=== PATIENT | female | born 1970 | race Caucasian/White ===

== ENCOUNTER → 2018-02-02 15:30 | Outpatient (CLI) | payer SELFPAY ==
[2018-02-06 10:39] LABS: HPV Reflexed? NOT INDICATED
== END ==
PROVIDERS: Visit Provider Obstetrics & Gynecology
DX: Z12.4 Encounter for screening for malignant neoplasm of cervix (principal)
CPT/HCPCS: 88175; G0145

== ENCOUNTER 2021-02-25 05:33 | Day surgery (SDC) | payer OTHER, SELFPAY ==
[2020-10-09 11:38] VITALS: BMI 37.1
[2021-01-22 09:56] VITALS: BMI 37.1
--- NOTE | 2021-02-17 11:04 | NURSING ---
During PAT phone interview, pt instructed to notify Dr Gerard's office that she currently has a cold and is seeing PCP.
--- NOTE | 2021-02-19 10:38 | EKG12_ITS ---
Test Reason : PRE-OP Blood Pressure : / mmHG Vent. Rate : 081 BPM Atrial Rate : 081 BPM P-R Int : 124 ms QRS Dur : 098 ms QT Int : 372 ms P-R-T Axes : 000 -07 012 degrees QTc Int : 432 ms Normal sinus rhythm Voltage criteria for left ventricular hypertrophy Inferior infarct , age undetermined , cannot be excluded Abnormal ECG Confirmed by NASH MERINO, JESÚS ([id number]), dictionary editor GIGI OVALLE ([id number]) on 02/20/2021 7:52:52 AM Referred By: José Gerard Confirmed By:JESÚS CAO MD
[2021-02-19 11:29] LABS: Hematocrit 41.5 % (37-47); Hemoglobin 14.2 g/dL (12.0-15.0); Mean Corp Hgb Conc 34.2 g/dL (32-36); Mean Corpuscular Hgb 29.6 pg (27.0-32.0); Mean Corpuscular Volume 86.6 fL (81-99); Mean Platelet Vol. 9.1 fl (6.2-12.0); Platelet Count 319 K/mm3 (150-450); RBC Distribution Width CV 12.2 % (11.6-14.6); RBC Distribution Width SD 38.9 fl (35.1-43.9); Red Blood Count 4.79 M/mm3 (4.2-5.4); White Blood Count 6.1 K/mm3 (4.4-11.0)
[2021-02-19 11:38] LABS: Prothrombin Time (Protime)PT. 12.5 SECONDS (11.7-14.9)
[2021-02-19 11:40] LABS: Partial Thromboplast Time 32.6 Seconds (24.1-36.2)
[2021-02-19 11:57] LABS: AST(SGOT) 21 U/L (15-37); Alanine Aminotransfer ALT/SGPT 28 U/L (13-56); Albumin, Serum 3.7 g/dL (3.2-5.0); Alkaline Phosphatase 66 U/L (45-117); Anion Gap 5 (5-15); BUN 16 mg/dL (7-18); BUN/Creat Ratio 13.6 RATIO (10-20); Bilirubin, Direct 0.11 mg/dL (0.00-0.30); Calcium,Total 9.5 mg/dL (8.5-10.1); Chloride 106 mmol/L (98-107); Creatinine, Serum 1.18 mg/dL (0.55-1.02); EST Glomerular Filtration Rate 51 mL/min (>60); Est Glom Filt Rate - Afr Amer 62 mL/min (>60); Globulin 3.8 g/dL (2.2-4.2); Glucose 155 mg/dL (74-106); Potassium 3.5 mmol/L (3.5-5.1); Protein, Total 7.5 g/dL (6.4-8.2); Sodium Level 139 mmol/L (136-145)
--- NOTE | 2021-02-24 12:33 | HP.PCM_ITS ---
History and Physical Date of Admission: 02/25/21 HISTORY OF PRESENT ILLNESS 50 year old female presents with complaints of bilateral macromastia as well as associated painful symptomatology of neck pain, thoracic back pain, bilateral shoulder pain from shoulder grooving from the weight of her breast on her bra straps, an inframammary intertrigo for which she uses powders for relief. She denies any trauma to her breasts. Denies any nipple discharge. She has seen a Chiropractor in the past without much back pain relief. She had a mammogram on 10/16/20. It showed no dominant mass or focal asymmetry identified. No suspicious microcalcifications or foci of architectural distortion seen. No mammographic evidence of malignancy. She denies any family history of breast cancer. We have received medical approval from her insurance carrier for the breast reduction surgery. It is scheduled for 02/25/21. She presents at this time for a preop visit to answer any last minute questions and to sign the consent. PAST MEDICAL HISTORY Arthritis Chronic neck pain Chronic thoracic back pain Fatty liver High blood pressure Intertrigo Macromastia PMDD (premenstrual dysphoric disorder) Shoulder pain PAST SURGICAL HISTORY eye surgery kidney surgery tonsillectomy ALLERGIES meloxicam house dust mold MEDICATIONS bupropion HCl fluoxetine metformin montelukast triamterene-hydrochlorothiazide diazepam FAMILY HISTORY Mother - Arthritis, Diabetes, Skin cancer Father - Cancer, Hypertension, Lung cancer, Skin cancer Grandfather - Cancer Daughter - Cancer Brother - Diabetes SOCIAL HISTORY Smoking Status: Never smoker alcohol intake: current details: socially substance use type: does not use REVIEW OF SYSTEMS General - Denies fever, weight loss, and fatigue. Eyes - Denies cataracts and glaucoma. Had right eye surgery as a child. ENT - Denies nasal congestion and sore throat. Has seasonal allergies and tonsillectomy 1987. Endocrine - Denies excessive thirst and urination. History of Pre-menstrual dysphoric disorder. Skin - Denies suspicious lesions and skin cancer. Has inframammary intertrigo for which she uses powders for relief. Musculoskeletal - Denies weakness of muscles and joints, and arthritis. Has right knee joint pain and stiffness and neck pain and back pain. Her neck and back pain involve cervical and thoracic area. Has a history of carpal tunnel syndrome. Has bilateral shoulder pain from shoulder grooving from the weight of her breasts on her bra straps. Neuro - History of headaches. Cardiovascular - Denies chest pain, fatigue, and shortness of breath with exertion. Has HTN. Psych - Denies anxiety and depression. Respiratory - Denies chronic cough and shortness of breath. Patient is a former smoker. Gastrointestinal - Denies nausea, vomiting, diarrhea, and constipation. History of fatty liver. Hematologic - Denies abnormal bruising and bleeding. Genitourinary - Denies hematuria and urinary frequency. PHYSICAL EXAMINATION General - Alert and oriented. Her bra size is 46 H. HEENT - PERRL. EOMI. Throat is clear. Neck - Supple. No cervical adenopathy. No bony tenderness. There is some pericervical soft tissue tenderness. Lungs- Clear to auscultation. Heart - Regular rate and rhythm. Breasts - Patient has bilateral macromastia. No breast masses palpable. No axillary adenopathy noted. Distance from midclavicular line on the left to nipple is 43 cm and from the nipple to the inframammary fold is 13 cm. Distance from midclavicular line on the right to the nipple is 44 cm and from the nipple to the inframammary fold is 14 cm. Nipple areolar complex diameter is 7.5 cm bilaterally. No active inframammary intertrigo noted at this time. Abdomen - Soft and non distended. Back - No bony tenderness noted. There is perivertebral soft tissue tenderness in the upper thoracic area. Extremities - FROM. No axillary adenopathy. Radial pulses are palpable. There is some bilateral shoulder tenderness with shoulder grooving from the weight of her breasts on her bra straps. Neuro - CN II-XII grossly intact. Psych - Normal mood and affect. ASSESSMENT 1. Bilateral macromastia. 2. Neck pain. 3. Thoracic back pain. 4. Bilateral shoulder pain from shoulder grooving from the weight of the breasts on her bra straps. 5. Inframammary intertrigo. PLAN Discussed with the patient the procedure of breast reduction mammoplasty. I feel this procedure would be beneficial in this patient as it would help relieve her painful symptomatology. She had a mammogram on 10/16/20. It showed no dominant mass or focal asymmetry identified. No suspicious microcalcifications or foci of architectural d istortion seen. No mammographic evidence of malignancy. I would remove approximately 700 grams of breast tissue per side. We will send the tissue to pathology for analysis to rule out carcinoma. Discussed with patient the extent of scarring for this procedure. The biggest risk for wound healing problems is the T-zone area. Usually wound care and sometimes antibiotics are necessary for healing in this area. She would have drains in for a few day depending on the amount of tissue that is removed. She will be on antibiotics until the drains are removed. In general, the final breast size will be in the full C to maybe low D range. Patient voices understanding. Surgery will be done under general anesthesia with a surgical observation overnight stay in the hospital. She will have drains in for a few days and be maintained on antibiotics until the drains are removed. She will be on a lifting restriction for 6 weeks and wear a surgical compression bra for 6 weeks. Patient was informed of the risks and complication of the procedure including alternatives to surgery. These were discussed with her personally. She voices understanding and wishes to proceed. Some of the risks and complications were included in a form from the [employer] [employer]. Potential risks and complications included but not inclusive of bleeding, infection, seroma, hematoma, bruising, swelling, prolonged need for drains, loss of sensation to skin, partial or complete loss of skin flap and/or nipple graft, wound breakdown, need for wound care, poor scarring, poor aesthetic outcome, intra operative cardiac or neurologic events, DVT, PE, and reaction to anesthesia. We have received medical approval from her insurance carrier for the breast reduction surgery. It is scheduled for 02/25/21. She had last minute questions for the surgery. There were answered personally and to her satisfaction. Her office consent was signed. She states she is getting a little nervous about the upcoming surgery and is having trouble sleeping at night. I sent in a script for Valium to be taken at night a few nights before her surgery. We discussed the current risks associated with COVID-19. While it is understood that there is a community spread of COVID-19, the risk of eric COVID-19 while at [facility] ([facility]) is very low; however, the risk cannot be completely mitigated because of the community spread of the disease. We discussed in detail the risk of exposure to and/or potential harm posed by the COVID-19 virus with having a surgery/procedure at this time versus the risk of delaying the surgery/procedure. It is not possible to know either the risk of delaying the surgery or procedure or chance of getting an infection with perfect accuracy, but a joint decision was made to proceed at this time with the scheduled surgery/procedure as indicated on the consent form. Patient was notified that we will need to comply with any screening or testing WC wishes to perform or that surgery may be delayed for any positive results. Procedure Criteria Procedure Type:?Elective COVID Risk Discussion: The surgeon/proceduralist and patient have discussed in detail the risk of exposure to and/or potential harm posed by the COVID-19 virus with having a surgery/procedure at this time versus the risk of delaying the surgery/procedure.? It is not possible to know either the risk of delaying the surgery or procedure or chance of getting an infection with perfect accuracy, but a joint decision was made between the patient and the surgeon/proceduralist to proceed at this time with the scheduled surgery/procedure as indicated on the consent form.
[2021-02-25] VITALS (10 sets, daily range): BP systolic 96–149; BP diastolic 57–97; PULSE 78–99; RESP 14–18; TEMP 36–37.1; O2SAT 92–100; BMI 40.6
--- NOTE | 2021-02-25 | MAM_PTH ---
PATIENT: JHON MIN LOC: [facility] [place] U#:[id number] AGE/SX: 50/F ROOM: RE02/25/[address]: Dr. José Gerard MD : 1970 BED: DIS: 02/26/2021 SPEC #: [id number] RECD: 02/25/21 14:31 STATUS: DS ONEAL #: [id number] JE: 02/25/21 00:[address]: José Gerard DEPT: SURGICAL PATHOLOGY RECD BY: Gilbert Kelly Tissues: A - Breast, NOS B - Breast, NOS Procedures: Surgery Specimen Level IV HEADER OPERATION: ERAS, breast reduction mammoplasty PRE-OP DIAGNOSIS: Bilateral macromastia, neck and thoracic back pain, bilateral shoulder pain, inframammary intertrigo TISSUE SUBMITTED: A ? Right breast tissue, B ? Left breast tissue MICROSCOPIC DIAGNOSIS A. Right breast, reduction mammoplasty: Fibrocystic change. Focal intraductal hyperplasia without atypia. Skin with minimal chronic inflammation. B. Left breast, reduction mammoplasty: Fibrocystic change. Focal intraductal hyperplasia without atypia. Skin with minimal chronic inflammation. AM:ronny 02/27/2021 MICROSCOPIC DESCRIPTION Slides are reviewed. GROSS DESCRIPTION A - Received in fixative is one container labeled with the patient's name and designated right breast tissue. The specimen consists of 26 irregular fragments of yellow-ramos fibrofatty tissue. Several of the larger fragments contain adherent pink-ramos skin with no skin lesions. The fragments range in size from 1 to 18 cm and in aggregate weigh 1400 gm. Serial sections reveal yellow-white fatty tissue interrupted occasionally by dense white fibrous streaks. No distinct mass lesions are identified. Chair Upholsterer sections are submitted in five cassettes. B - Received in fixative is one container labeled with the patient's name and designated left breast tissue. The specimen consists of 26 irregular fragments of yellow-ramos fibrofatty tissue. Several of the larger fragments contain adherent pink-ramos skin with no skin lesions. The fragments range in size from 3 to 17 cm and in aggregate weigh 1200 gm. Serial sections reveal yellow-white fatty tissue interrupted occasionally by dense white fibrous streaks. No distinct mass lesions are identified. Chair Upholsterer sections are submitted in five cassettes. / AM:ronny 02/26/21 TC:3 CPT: 27029 x2
[2021-02-25 06:16] LABS: Internal QC Validated? YES +Cl - CLEAR BKGD; Pregnancy, Urine Negative Negative
[2021-02-25 06:31] LABS: Bedside Glucose 121 mg/dL (70-110)
[2021-02-25] MEDS: Lactated Ringers 1,000 ML 100 ML IV (07:04)
[2021-02-25] MEDS: Cefazolin 2 GM in 0.9% Normal Saline 100 ML IV (08:57)
[2021-02-25] MEDS: Lidocaine 1% /Epi 1:100 (20ml) 20 ML Vial ×2 (09:43→09:44)
--- NOTE | 2021-02-25 14:26 | OP.PCM_ITS ---
Problems Associated Problem List Diagnoses (1) Macromastia: (2) Chronic neck pain: (3) Chronic thoracic back pain: (4) Shoulder pain: (5) Intertrigo: Report of Operation Date of Procedure: 02/25/21 Pre-Operative Diagnosis: 1. Bilateral macromastia. 2. Neck pain. 3. Thoracic back pain. 4. Bilateral shoulder pain from shoulder grooving from the weight of the breasts on her bra straps. 5. Inframammary intertrigo. Post-Operative Diagnosis: Same. Surgery/Procedure Performed:: Bilateral breast reduction mammaplasty. Description of Surgical Findings:: 50 year old female presents with complaints of bilateral macromastia as well as associated painful symptomatology of neck pain, thoracic back pain, bilateral shoulder pain from shoulder grooving from the weight of her breast on her bra straps, an inframammary intertrigo for which she uses powders for relief. She denies any trauma to her breasts. Denies any nipple discharge. She has seen a Chiropractor in the past without much back pain relief. She had a mammogram on 10/16/20. It showed no dominant mass or focal asymmetry identified. No suspicious microcalcifications or foci of architectural distortion seen. No mammographic evidence of malignancy. She denies any family history of breast cancer. We have received medical approval from her insurance carrier for the breast reduction surgery. Patient was informed of the risks and complications of the procedure including alternatives to surgery. These were discussed with the patient personally. Patient voices understanding and wishes to proceed. Some of the risks and complications were included in a form from the [place] [employer]. IV Fluids - 3400 ml. Urine Output - 500 ml. Tissue removed from the left breast - 1126 grams. Tissue removed from the right breast - 1320 grams. I used AmnioFix Placental Connective Tissue Graft, (I used 7 x 6 cm or 42 cm2 for each breast at the one). Catalog Number - [id number]. Lot Number - [id number]. Expiration - October 21, 2025 (Left breast). Catalog Number - [id number]. Lot Number - [id number]. Expiration - November 21, 2025 (Right breast). I used Eleazar absorbable hemostat, (I used 4 vials, 2 in each breast). Reference Number - [id number]. Lot Number - [id number]. Expiration - October 20, 2025. Surgeon: José Gerard senior hadoop developer: Andry Deng Type of Anesthesia: General Specimen's removed: 1. Left breast tissue to Pathology. 2. Right breast tissue to Pathology. Drains: Emile x2 (one in each breast). Estimated Blood Loss (mL): 250. Fluids Replaced: 3900 ml (IV Fluids 3400 ml, Urine Output 500 ml). Description of Procedure: In the preop area, the patient was placed in the sitting position and preoperative markings were made. The sternum midline was marked down to the umbilicus. The inframammary folds were marked bilaterally. The midclavicular line was then marked down to the nipple, then from the nipple to the inframammary fold. The inframammary fold was then superimposed on the midclavicular line and I made a point 1 cm below that to be the new position of the nipple-areolar complex. 7 cm lines were then drawn divergent from that point to encompass the nipple-areolar complex. The distance between the divergent lines was 10 cm. The patient was then placed in the supine position and taken to the operating room and placed under general anesthesia and her breasts were prepped and draped in usual fashion. Ioban draping was also used. SCDs were placed for DVT prophylaxis. Perioperative antibiotics were given intravenously. A Short catheter was also placed. I then lópez straight lines down from the lines drawn divergent around the nipple-areolar complex down to the inframammary fold. The width of the pedicle is 10 cm. I then used a 42 mm circular template for a new size of the nipple-areolar complex. The central markings were infiltrated with Xylocaine and epinephrine. The central skin was then deepithelialized. I started on the left side first and then went to the right side. I then mobilized medial and lateral breast flaps at the level of Indiana's fascia down to about 1-2 cm from the chest wall. This was met in the midline of the breast with dissection at the level of Indiana's fascia down to about 1-2 cm from the chest wall. Once the central breast mound pedicle was from the skin envelope, the reduction was then begun. Most of the tissue was removed from the superior aspect of the breast and the lateral aspect of the breast. I then sutured the leading edge of the medial and lateral breast flaps to the midline of the inframammary fold with 2-0 Vicryl suture. The vertical incision was approximated using surgical clips. The excess tissue from the medial and lateral breast flaps were excised and the horizontal incision was approximated using surgical clips. The patient was then placed in a sitting position. Using a vertical limb length of 6 cm, I lópez the new position of the new nipple-areolar complexes on both breasts. They were in good position on the central aspect of the breast mound. Good symmetry was noted between the left breast and the right breast. Good shape and contour and projection was noted and appeared clinically to be a full C cup or low D cup. The patient was then placed back in the supine position and the surgical clips were removed. The breast wounds were then irrigated with Irrisept 0.05% Chlorhexidine solution which was followed by saline irrigation. Hemostasis was obtained using electrocautery. The tissue removed from the left breast was 1126 grams. The tissue removed from the right breast was 1320 grams. The tissue that was removed from the breasts was sent to Pathology for analysis to rule out carcinoma. After hemostasis was obtained using electrocautery, I then sprayed Eleazar absorbable hemostat into both breast wounds. I used two vials for each side. I then placed a size 15 Emile drain into each breast wound to be brought through the lateral aspect of the horizontal incision. I then closed the breast wounds by first approximating the leading edge of the medial and lateral breast flaps to the midline of the inframammary fold with 2-0 Vicryl suture. I then placed AmnioFix placental connective tissue graft into both wounds at the level of the Tzone to help with the healing process. I used 7 x 6 cm for each Tzone. The deep dermis and subcutaneous tissue of the vertical incision and the horizontal incisions were approximated using 3-0 Monocryl interrupted sutures. The horizontal incision was then approximated using 4-0 V-Loc unidirectional barbed running subcuticular suture. I also placed a few 4-0 Prolene vertical mattress interrupted sutures at the level of the Tzone. The vertical incision was then closed on the skin with 4-0 Prolene interrupted sutures. With a vertical limb length of 6 cm, I lópez a circular incision where the nipple- areolar complex would be brought through this keyhole incision. Incisions were made and the nipple areolar complex was brought through the keyhole incision. The nipple-areolar complex was secured to the breast skin using 3-0 Monocryl interrupted sutures for deep dermis and subcutaneous tissue. The skin was approximated using 4-0 Prolene simple interrupted sutures. This was then covered with Histoacryl skin tissue adhesive. I sutured the drains to the skin using 3-0 nylon suture. At the end of the procedure, the breasts were soft with no evidence of vascular compromise. No evidence of hematomas were noted. The nipples were viable. I then dressed the breasts with a Kerlix gauze and a compression garfield wrap. Then patient tolerated the procedure well and will be sent to the recovery room in satisfactory condition. She will be admitted for surgical observation overnight stay. She will go home tomorrow once she is tolerating oral pain medication. I will remove the drains in a few days. She will keep her head elevated during the initial postoperative period. She will be maintained on a lifting restriction and keep her head elevated during the initial postoperative period. Post-discharge, she may get a compression sports bra as well. She will have the Short removed in the morning. She will be sent home on antibiotics and pain medicine. Sutures will be removed in 1-2 weeks. Grafts/Implants Used: AmnioFix Placental Connective Tissue Graft x2, Eleazar. Complications None. Admit VTE Documentation VTE Present on Admission: No VTE Mechan Device Prophylaxis: SCD's VTE Pharm Prophylaxis ordered?: Yes Addendum Addendum: Surgery Charges CPT - 28574 ICD-10 - N62, M54.2, M54.6, M25.519, L30.4 [id number] N62, M54.2, M54.6, M25.519, L30.4
[2021-02-25] MEDS: Cefazolin 1 GM/50 ML BAG IV ×2 (17:12→21:15)
[2021-02-25] MEDS: Docusate Sodium 100 MG Capsule PO ×2 (17:15→21:16)
[2021-02-25] MEDS: FLUoxetine 10 MG Capsule PO (17:16)
[2021-02-25] MEDS: Gabapentin 100 MG Capsule 200 MG PO (17:17)
[2021-02-25] MEDS: Acetaminophen 500 MG Tablet 1000 MG PO (17:17)
[2021-02-25] MEDS: Montelukast 10 MG Tablet PO (17:17)
[2021-02-25] MEDS: buPROPion (XL) 150 MG TABLET.XL PO (17:17)
[2021-02-25] MEDS: Ensure Surgery 237 ML LIQUID PO (17:20)
[2021-02-25] MEDS: oxyCODONE 5 MG Tablet PO ×2 (17:37→18:33)
[2021-02-25] MEDS: Lactated Ringers 1,000 ML 60 ML IV (20:51)
[2021-02-25] MEDS: Triamterene 37.5MG/Hctz 25MG Capsule 1 CAP PO (21:16)
[2021-02-26 00:24] VITALS: BP 114/57; PULSE 83; RESP 16; TEMP 36.8; O2SAT 92
[2021-02-26] MEDS: Acetaminophen 500 MG Tablet 1000 MG PO ×3 (00:28→11:39)
[2021-02-26 04:25] VITALS: BP 98/61; PULSE 73; RESP 16; TEMP 36.7; O2SAT 94
--- NOTE | 2021-02-26 04:39 | NURSING ---
Pt OOB for first time since surgery with assistance from [employer] Erich; tolerated standing at bedside and ambulating in room.
[2021-02-26 05:21] LABS: Hematocrit 31.3 % (37-47); Hemoglobin 10.2 g/dL (12.0-15.0); Mean Corp Hgb Conc 32.6 g/dL (32-36); Mean Corpuscular Hgb 29.6 pg (27.0-32.0); Mean Corpuscular Volume 90.7 fL (81-99); Platelet Count 268 K/mm3 (150-450); RBC Distribution Width CV 12.4 % (11.6-14.6); RBC Distribution Width SD 41.1 fl (35.1-43.9); Red Blood Count 3.45 M/mm3 (4.2-5.4); White Blood Count 11.1 K/mm3 (4.4-11.0)
[2021-02-26] MEDS: Cefazolin 1 GM/50 ML BAG IV ×2 (05:31→13:56)
[2021-02-26 05:44] LABS: Anion Gap 3 (5-15); BUN 18 mg/dL (7-18); BUN/Creat Ratio 16.1 RATIO (10-20); Calcium,Total 8.3 mg/dL (8.5-10.1); Chloride 105 mmol/L (98-107); Creatinine, Serum 1.12 mg/dL (0.55-1.02); EST Glomerular Filtration Rate 54 mL/min (>60); Est Glom Filt Rate - Afr Amer 66 mL/min (>60); Estimated Creatinine Clearance 55.01 ml/min; Glucose 128 mg/dL (74-106); Potassium 3.9 mmol/L (3.5-5.1); Prealbumin 22.3 mg/dL (20.0-40.0); Sodium Level 139 mmol/L (136-145)
[2021-02-26 07:37] VITALS: O2SAT 92
[2021-02-26 08:25] VITALS: BP 110/58; PULSE 84; RESP 14; TEMP 36.8; O2SAT 95
[2021-02-26] MEDS: Montelukast 10 MG Tablet PO (08:39)
[2021-02-26] MEDS: FLUoxetine 10 MG Capsule PO (08:39)
[2021-02-26] MEDS: Gabapentin 100 MG Capsule 200 MG PO ×2 (08:39→11:39)
[2021-02-26] MEDS: metFORMIN HCl 500 MG Tablet PO (08:39)
[2021-02-26] MEDS: buPROPion (XL) 150 MG TABLET.XL PO (08:39)
[2021-02-26] MEDS: Enoxaparin 40 MG/0.4 ML Syringe SC (08:40)
[2021-02-26] MEDS: oxyCODONE 5 MG Tablet PO ×2 (08:44→14:11)
[2021-02-26] MEDS: Ensure Surgery 237 ML LIQUID PO (08:44)
--- NOTE | 2021-02-26 13:16 | PCM.DC ---
Discharge Instructions Diet Discharge Diet: No restrictions (High protein diet to help with wound healing) Activity Discharge Activity: May Not Shower (until drains are removed) May resume sexual activity in: 1-2 weeks Lifting Restrictions: 20 lb lifting restriction Dressing / Incision Call your doctor if your incision/area has: Continuous Slow Oozing, Sudden Increased Bleeding, Increased Pain/ Swelling, Increased Redness, Foul Smelling Discharge and Swelling at the incision site Call your doctor if you observe: Fever of 101 or Higher, Inability to urinate, Inability to have a bowel movement, Shortness of breath, Chest pain, Calf discomfort and Uncontrolled pain Suture Line Care: Avoid Pulling/Pushing Change Dressing in: 2 days Cleanse incision/area with: Keep Dressing Clean & Dry Drain: Suction Additional Dressing/Incision Instructions:: Keep a log of drainage. Keep incision covered with dry dressing. Change dressing as needed. Follow Up Care Please Follow Up With: Dr. Gerard When: Wednesday03/03/21. Call office for appointment [phone] Test Results: Test results from this visit will be discussed in further detail at your follow-up appointment, if applicable. Discharge Plan Admission Attending Provider: José Gerard Discharge Orders/Prescriptions Prescriptions: New oxycodone-acetaminophen [Percocet] 5-325 mg tablet 1 tab PO Q4H PRN (Reason: pain (scale score 7-10)) 7 Days Qty: 40 RF: 0 doxycycline monohydrate 100 mg capsule 100 mg PO BID 10 Days Qty: 20 RF: 0 docusate sodium [Colace] 100 mg capsule 100 mg PO BID PRN (Reason: constipation) 30 Days Qty: 60 RF: 0 Continued montelukast 10 mg tablet 10 mg PO DAILY RF: 0 metformin 500 mg tablet 500 mg PO DAILY RF: 0 bupropion HCl 150 mg tablet extended release 24 hr 150 mg PO QAM RF: 0 fluoxetine 10 mg tablet 10 mg PO DAILY RF: 0 triamterene-hydrochlorothiazid 37.5-25 mg tablet 1 tab PO QHS RF: 0 Held acetaminophen 500 mg Tablet 500 mg PO Q6H PRN (Reason: Back Pain) RF: 0 Hold Instructions: Resume on 03/05/21. Hold until not taking Percocet. No more than 3,000 mg of acetaminophen in a 24 hour period. Discontinued diazepam [Valium] 5 mg tablet 5 mg PO QHS PRN (Reason: anxiety) Qty: 5 RF: 0 Referrals / Follow Up: JOVON LIZ [Other] Disposition Disposition (needs filled in before D/C Order can be placed): Home, Self Care
[2021-02-26] MEDS: 0.9% Saline Lock 10 ML Syringe IV (13:56)
[2021-02-26 14:00] VITALS: BP 117/59; PULSE 87; RESP 14; TEMP 36.9; O2SAT 93
--- NOTE | 2021-02-26 14:02 | PN.SURG_ITS ---
Subjective Subjective Postop #1 Patient sitting up in bed. Patient states pain is well controlled. Objective Data Objective Data Vital Signs: Vital Signs Temp Pulse Resp BP Pulse Ox 98.2 F 84 14 110/58 L 95 02/26/21 08:25 02/26/21 08:25 02/26/21 08:25 02/26/21 08:25 02/26/21 08:25 Oxygen Flow Rate (L/min) 6 Oxygen Delivery Method Room Air Weight: 251 lb 8.759 oz Body Mass Index (BMI) 40.6 Intake & Output: Intake and Output for Last 24 Hours 02/24/21 02/25/21 02/26/21 23:59 23:59 23:59 Intake Total 2141 / 2191 816 / 816 Output Total 695 / 1185 1705 / 1705 Balance 1446 / 1006 -889 / -889 Emile drain #1 - 120 ml drainage Emile drain #2 - 80 ml drainage Lab / Micro Data Result Diagrams: 02/26/21 05:14 02/26/21 05:14 Labs: Laboratory Results - last 24 hr 02/26/21 02/26/21 05:14 05:14 WBC 11.1 H RBC 3.45 L Hgb 10.2 L Hct 31.3 L MCV 90.7 MCH 29.6 MCHC 32.6 RDW Std Deviation 41.1 RDW Coeff of Say 12.4 Plt Count 268 MPV 9.0 Sodium 139 Potassium 3.9 Chloride 105 Carbon Dioxide 31.0 Anion Gap 3 L BUN 18 Creatinine 1.12 H Estim Creat Clear Calc 55.01 Est GFR (MDRD) Af Amer 66 Est GFR (MDRD) Non-Af 54 L BUN/Creatinine Ratio 16.1 Glucose 128 H Calcium 8.3 L Prealbumin 22.3 Micro: Microbiology 02/19/21 10:46 Interface Orders SARS-CoV-2 Antigen (Rapid) - Final Physical Exam Const oriented x3 and no apparent distress HEENT normocephalic Resp normal respiratory effort Cardio regular rate GI normal to inspection, nondistended, normoactive bowel sounds Bladder / Kidney Exam: catheter in place Extremity normal to inspection and full ROM Skin Skin Narrative: Operative dressing removed. Bilateral breasts are symmetrical with good contour. Nipples are viable. Mild bruising on bilateral breasts. Incisions are dry and intact. Sutures are intact. Emile drains are draining serosanguineous drainage. Neuro CN's II-XII intact bilaterally Psych mental status grossly normal Assessment & Plan Assessment/Plan (1) Macromastia: (2) Chronic neck pain: (3) Chronic thoracic back pain: (4) Shoulder pain: (5) Intertrigo: (6) Acute postoperative pain: (7) Acute postoperative anemia due to expected blood loss: PLAN: Pain is well controlled. Incisions are dry and intact. Breasts are symmetrical with good contour. Mild bruising present on bilateral breasts. Incisions and sutures are dry and intact. Keep compression on at all times. Emile drains are intact. Draining serosanguineous fluid. Will have her come into the office on Wednesday to have the drains removed. She will record the d rainage amount daily. She is currently on Cefazolin IV. Upon discharge, she will take Doxycycline u ntil the drains are removed. Hgb 10.2. Acute postoperative anemia due to expected blood loss. Will recheck her hemoglobin in one week. Prealbuim 22.3. Encouraged increased protein intake. Discontinue Short catheter. Encourage ambulation. Lifting restriction of 20 lbs. Keep head elevated. Follow up in the office on Wednesday03/03/21 to have drains removed. Charges/Coding Procedures Integumentary [id number]: [id number] Global Visit
--- NOTE | 2021-02-26 15:31 | PHA.DC.MC ---
Pharmacy Service has performed discharge medication reconciliation and counseling for this patient. 1. DOXYCYCLINE 100MG PO BID X 10 DAYS 2. DOCUSATE 100MG PO BID PRN CONSTIPATION 3. OXYCODONE/ACETAMINOPHEN 5/325MG 1T PO Q4H PRN PAIN 7-10 The patient's discharge medication list was reviewed for discrepancies and discrepancies were resolved. Home Medications bupropion HCl 150 mg 24 hr tablet, extended release 150 mg PO QAM 10/09/20 fluoxetine 10 mg tablet 10 mg PO DAILY 10/09/20 metformin 500 mg tablet 500 mg PO DAILY 10/09/20 montelukast 10 mg tablet 10 mg PO DAILY 10/09/20 triamterene 37.5 mg-hydrochlorothiazide 25 mg tablet 1 tab PO QHS 10/09/20 acetaminophen 500 mg PO Q6H PRN 02/17/21 docusate sodium [Colace] 100 mg PO BID PRN 30 Days #60 cap 02/26/21 doxycycline monohydrate 100 mg PO BID 10 Days #20 cap 02/26/21 oxycodone-acetaminophen [Percocet] 1 tab PO Q4H PRN 7 Days #40 tab 02/26/21 The patient was counseled on the following discharge medications and changes in medications for homegoing were reviewed. The Reason for Use, instructions for use, and potential side effects were reviewed for all new medications. The patient's questions regarding all of their medications were answered. The patient was able to verbally demonstrate an understanding of their discharge medications.
== END 2021-02-26 17:13 | disposition home or self-care (01) ==
LOC: SDC 05:39 → AC 06:04 → MS3 02-26 08:31
PROVIDERS: Anesthesiology; Referring Provider Surgery; Visit Provider Surgery
PROC: 0H0U0ZZ Alteration of Left Breast, Open Approach (ICD-10-PCS; CPT 19318; principal; 2021-02-25 07:15)
DX: N60.12 Diffuse cystic mastopathy of left breast (principal); N60.11 Diffuse cystic mastopathy of right breast; N62 Hypertrophy of breast; M54.2 Cervicalgia; M54.6 Pain in thoracic spine; M25.511 Pain in right shoulder; M25.512 Pain in left shoulder; L30.4 Erythema intertrigo; I10 Essential (primary) hypertension; M19.90 Unspecified osteoarthritis, unspecified site; Z79.899 Other long term (current) drug therapy
CPT/HCPCS: 00402; 19318; 36415; 80048; 80076; 81025; 82962; 84134; 85027; 85610; 85730; 87426; 88305; 93005; 99251; C9803; J7120; A4216; G0463; J2405; Q9968

== ENCOUNTER → 2021-03-26 16:00 | Outpatient (CLI) | payer OTHER, SELFPAY ==
[2021-03-19 11:11] VITALS: BMI 40.6
== END ==
PROVIDERS: Visit Provider Nurse Practitioner Family
DX: T81.89XA Other complications of procedures, not elsewhere classified, initial encounter (principal)
CPT/HCPCS: 87070; 87075; 87205

== ENCOUNTER → 2021-06-30 09:39 | Outpatient (CLI) | payer OTHER, SELFPAY ==
--- NOTE | 2021-06-30 09:43 | US_ITS ---
STUDY: ULTRASOUND BREAST - LEFT REASON FOR EXAM: Female, 51 years old. Lateral left breast pain. Status post bilateral breast reduction surgery. TECHNIQUE: Axial and longitudinal images of the LEFT breast were performed with a high resolution ultrasound transducer. # OF IMAGES: 55 COMPARISON: Comparison is made with prior ultrasound of the left breast dated 06/27/2015. FINDINGS: LEFT Breast: The lateral half of the left breast was examined by ultrasound. Adjacent to this surgical scar, there is a 2.5 cm x 1 cm x 0.2 cm hypoechoic density. This may represent postoperative hematoma. US/Breast Limited Unilateral IMPRESSION: 2.5 cm x 1 cm x 0.2 cm hypodensity adjacent to the scar in the lateral aspect of the left breast adjacent to the thorax, this may represent postoperative changes. ASSESSMENT CATEGORY: BIRADS Category 2: Benign. A letter regarding these results will be sent to the patient by the facility within 30 days. Electronically Signed: Anand Burris MD at 12:21 EST , Service support ,
== END ==
PROVIDERS: Visit Provider Nurse Practitioner Family
DX: N64.4 Mastodynia (principal)
CPT/HCPCS: 76642

== ENCOUNTER 2021-10-22 07:18 | Day surgery (SDC) | payer OTHER, SELFPAY ==
[2021-10-22] VITALS (7 sets, daily range): BP systolic 123–143; BP diastolic 74–80; PULSE 79–86; RESP 16–18; TEMP 36.6–37.1; O2SAT 94–97; BMI 40.9
--- NOTE | 2021-10-22 07:46 | PCM.HP.BLA ---
History and Physical Date of Admission: 10/22/21 HISTORY OF PRESENT ILLNESS 51 year old woman who underwent a bilateral breast reduction mammaplasty on 02/25/21. During the healing process, she developed a painful mass in lateral aspect left breast with associated swelling and redness. She was treated with Doxycycline and the redness resolved but the mass persisted. Ultrasound was done in June,, and it showed the presence of this mass possibly a residual hematoma. During the early infection, ulceration occurred which has since healed after being on antibiotics. She has residual pain in the lateral aspect left breast. She also noted a small mass on the medial aspect of the left breast and that will be excised as well. Will send tissue to Pathology to rule out carcinoma and to Microbiology for culture. PAST MEDICAL HISTORY Arthritis Chronic neck pain Chronic thoracic back pain Fatty liver High blood pressure Intertrigo Macromastia PMDD (premenstrual dysphoric disorder) Shoulder pain PAST SURGICAL HISTORY eye surgery kidney surgery tonsillectomy bilateral breast reduction mammaplasty - 02/25/21 ALLERGIES meloxicam house dust mold MEDICATIONS bupropion HCl fluoxetine metformin montelukast triamterene-hydrochlorothiazide diazepam FAMILY HISTORY Mother - Arthritis, Diabetes, Skin cancer Father - Cancer, Hypertension, Lung cancer, Skin cancer Grandfather - Cancer Daughter - Cancer Brother - Diabetes SOCIAL HISTORY Smoking Status: Never smoker alcohol intake: current details: socially substance use type: does not use REVIEW OF SYSTEMS General - Denies fever, weight loss, and fatigue. Eyes - Denies cataracts and glaucoma. Had right eye surgery as a child. ENT - Denies nasal congestion and sore throat. Has seasonal allergies and tonsillectomy 1987. Endocrine - Denies excessive thirst and urination. History of Pre-menstrual dysphoric disorder. Skin - Denies suspicious lesions and skin cancer. Has inframammary intertrigo for which she uses powders for relief. Musculoskeletal - Denies weakness of muscles and joints, and arthritis. Has right knee joint pain and stiffness and neck pain and back pain. Her neck and back pain involve cervical and thoracic area. Has a history of carpal tunnel syndrome. Has bilateral shoulder pain from shoulder grooving from the weight of her breasts on her bra straps. Neuro - History of headaches. Cardiovascular - Denies chest pain, fatigue, and shortness of breath with exertion. Has HTN. Psych - Denies anxiety and depression. Respiratory - Denies chronic cough and shortness of breath. Patient is a former smoker. Gastrointestinal - Denies nausea, vomiting, diarrhea, and constipation. History of fatty liver. Hematologic - Denies abnormal bruising and bleeding. Genitourinary - Denies hematuria and urinary frequency. PHYSICAL EXAMINATION General - Alert and oriented. Her bra size is 46 H. HEENT - PERRL. EOMI. Throat is clear. Neck - Supple. No cervical adenopathy. No bony tenderness. There is some pericervical soft tissue tenderness. Lungs- Clear to auscultation. Heart - Regular rate and rhythm. Breasts - Patient has healed breast reduction incisions. On the lateral aspect left breast is a residual painful mass from previous infection, could represent a suture abscess granuloma or a residual hematoma. On the medial aspect is a small firm mass that she notices when she is wearing clothes. Abdomen - Soft and non distended. Back - No bony tenderness noted. There is perivertebral soft tissue tenderness in the upper thoracic area. Extremities - FROM. No axillary adenopathy. Radial pulses are palpable. There is some bilateral shoulder tenderness with shoulder grooving from the weight of her breasts on her bra straps. Neuro - CN II-XII grossly intact. Psych - Normal mood and affect. ASSESSMENT 1. Painful ulcerated infected scar contour deformity soft tissue mass, probable residual hematoma or suture abscess granuloma, left lateral breast. 2. Painful soft tissue mass left medial breast. PLAN Recommend excision of this painful infected ulcerated scar contour deformity soft tissue mass left lateral breast with complex closure repair. Will send tissue to Pathology for analysis to rule out carcinoma and to Microbiology for culture. A positive culture will necessitate antibiotic therapy. Will also excise the small firm mass on the medial aspect as well and send to Pathology to evaluate for carcinoma. Surgery will be done under general anesthesia on an outpatient basis. Depending on the size of the cavity in the lateral breast wound, will determine if a drain is necessary. Patient was informed of the risks and complications of the procedure including alternatives to surgery. These were discussed with the patient personally. Patient voices understanding and wishes to proceed. Some of the risks and complications were included in a form from the [employer]. We discussed the current risks associated with COVID-19. While it is understood that there is a community spread of COVID-19, the risk of eric COVID-19 while at [facility] ([facility]) is very low; however, the risk cannot be completely mitigated because of the community spread of the disease. We discussed in detail the risk of exposure to and/or potential harm posed by the COVID-19 virus with having a surgery/procedure at this time versus the risk of delaying the surgery/procedure. It is not possible to know either the risk of delaying the surgery or procedure or chance of getting an infection with perfect accuracy, but a joint decision was made to proceed at this time with the scheduled surgery/procedure as indicated on the consent form. Patient was notified that we will need to comply with any screening or testing [facility] wishes to perform or that surgery may be delayed for any positive results. Procedure Criteria Procedure Type:?Elective COVID Risk Discussion: The surgeon/proceduralist and patient have discussed in detail the risk of exposure to and/or potential harm posed by the COVID-19 virus with having a surgery/procedure at this time versus the risk of delaying the surgery/procedure.? It is not possible to know either the risk of delaying the surgery or procedure or chance of getting an infection with perfect accuracy, but a joint decision was made between the patient and the surgeon/proceduralist to proceed at this time with the scheduled surgery/procedure as indicated on the consent form.
[2021-10-22] MEDS: Lactated Ringers 1,000 ML 15 ML IV (07:52)
[2021-10-22 08:08] LABS: Internal QC Validated? YES +Cl - CLEAR BKGD; Pregnancy, Urine Negative Negative
--- NOTE | 2021-10-22 08:30 | SCAR_PTH ---
PATIENT: JHON MIN LOC: [facility] [place] U#:[id number] AGE/SX: 51/F ROOM: RE10/22/[address]: Dr. José Gerard MD : 1970 BED: DIS: 10/22/2021 SPEC #: [id number] RECD: 10/22/21 10:39 STATUS: SD ONEAL #: [id number] JE: 10/22/21 08:[address]: José Gerard DEPT: SURGICAL PATHOLOGY RECD BY: Lynette Raphael Tissues: A - CICATRIX/SCAR B - CICATRIX/SCAR Procedures: Surgery Specimen Level III HEADER OPERATION: Excision painful scar contour deformity, lateral breast PRE-OP DIAGNOSIS: Left breast pain, mass left breast, abscess involving suture TISSUE SUBMITTED: A ? Soft tissue left breast medial, B - Soft tissue left breast lateral MICROSCOPIC DIAGNOSIS A. Skin and soft tissue of left medial breast, excision: Dermal fibrosis and focal benign histiocytic reaction. No evidence of malignancy. B. Skin and soft tissue of left lateral breast, excision: Dermal fibrosis and focal benign histiocytic reaction. Focal fat necrosis. No evidence of malignancy. AM:ronny 10/23/2021 MICROSCOPIC DESCRIPTION Slides are reviewed. GROSS DESCRIPTION A - Received in fixative is one container labeled with the patient's name and designated soft tissue left breast medial. The specimen consists of skin with underlying tissue measuring 3 x 2.5 x 0.5 cm. The skin piece measures 2.6 x 0.5 cm. The specimen is bisected and submitted entirely in two cassettes. B - Received in fixative is one container labeled with the patient's name and designated soft tissue left breast lateral. The specimen consists of a piece of skin with underlying tissue measuring 9 x 2.5 cm and up to 3.5 cm in thickness. No skin lesion is identified. Sections do not reveal any mass lesion. Buckle Attacher sections are submitted in two cassettes. / SJ:ronny 10/22/2021 TC:5 CPT: 99084 x2
[2021-10-22] MEDS: Cefazolin 2 GM in 0.9% Normal Saline 100 ML IV (09:12)
[2021-10-22] MEDS: Lidocaine 1% /Epi 1:100 (50ml) 50 ML VIAL (09:36)
--- NOTE | 2021-10-22 10:22 | OP.PCM_ITS ---
Problems Associated Problem List Diagnoses (1) Mass of left breast: (2) Breast pain, left: (3) Unspecified open wound of left breast, sequela: (4) History of bilateral breast reduction surgery: Report of Operation Date of Procedure: 10/22/21 Pre-Operative Diagnosis: 1. Painful infected ulcerated scar contour deformity soft tissue mass, probable residual hematoma or suture abscess granuloma, left lateral breast. 2. Painful soft tissue mass left medial breast. Post-Operative Diagnosis: Same. Surgery/Procedure Performed:: 1. Surgical preparation left lateral breast with excision painful infected ulcerated scar contour deformity soft tissue mass, probable residual hematoma or suture abscess granuloma, with 11 cm complex secondary wound closure. 2. Excision painful soft tissue mass left medial breast with 3.5 cm layered closure. Description of Surgical Findings:: Patient underwent a bilateral breast reduction mammaplasty on 02/25/21. During the healing process, she developed a painful mass in lateral aspect left breast with associated swelling and redness. She was treated with Doxycycline and the redness resolved but the mass persisted. Ultrasound was done in June,, and it showed the presence of this mass possibly a residual hematoma. During the early infection, ulceration occurred which has since healed after being on antibiotics. She has residual pain in the lateral aspect left breast. She also noted a small mass on the medial aspect of the left breast and that will be excised as well. Will send tissue to Pathology to rule out carcinoma and to Microbiology for culture. Patient was informed of the risks and complications of the procedure including alternatives to surgery. These were discussed with the patient personally. Patient voices understanding and wishes to proceed. Some of the risks and complications were included in a form from the [employer]. I used Eleazar absorbable hemostat, (I used one vial). Reference Number - [id number]. Lot Number - [id number]. Expiration - June 19, 2026. Surgeon: José Gerard email production specialist: Andry Deng Type of Anesthesia: General Specimen's removed: 1. Left lateral breast tissue to Pathology and Microbiology. 2. Left medial breast tissue to Pathology. Drains: None. Estimated Blood Loss (mL): 20. Description of Procedure: In the preop area, patient was placed in sitting position. I marked out both areas to be addressed today, namely the lateral aspect and medial aspect of the left breast. Patient was taken to OR in supine position and was placed under general anesthesia. The left breast was prepped and draped in the usual fashion. SCD's were placed for DVT prophylaxis. Perioperative antibiotics were given intravenously. I used Ioban draping as well. Using xylocaine with epinephrine, the areas of the left medial breast and left lateral breast were infiltrated. After waiting 5 minutes for the anesthetic to take effect, I made an excision encompassing the mass and the ulcerated scar contour deformity. It was a horizontal elliptical incision in line with the breast reduction incision. A lot of scar tissue was present in the subcutaneous tissue and it extended down to the chest wall which could explain some of the pain. No pus was seen. Some of the scar tissue was consistent with a foreign body granuloma and consistent with a previous infection. Some of the soft tissue was sent to Pathology for analysis to rule out carcinoma and to Microbiology for culture. This area was infected in the recent past. A positive culture will necessitate antibiotic therapy. The lateral wound was irrigated with Irrisept 0.05% chlorhexidine solution followed by saline irrigation. Hemostasis was obtained with electrocautery. I sprayed Eleazar absorbable hemostat into the wound to minimize seroma formation. The wound was then closed in a multilayered complex fashion with 3-0 Vicryl figure of eight interrupted sutures for the underlying Indiana's fascia. The deep dermis and subcutaneous tissue was approximated with 3-0 Monocryl interrupted sutures and the skin was approximated with 3-0 V lock unidirectional barbed running subcuticular closure. I changed gloves and then addressed the medial mass. I made an oblique elliptical incision in line with the breast reduction scar and excised the underlying mass. A lot of scar tissue was present and this firm scar tissue could clinically simulate a mass. No evidence of infection seen. No pus was seen. The mass was sent to Pathology for analysis to rule out carcinoma. Hemostasis was obtained with electrocautery. I closed the medial breast wound with 3-0 Monocryl interrupted suture for the deep dermis and subcutaneous tissue. The skin was approximated witjh 4-0 Prolene simple interrupted suture. This was then followed by Histoacryl skin tissue adhesive on both incisions. The length of the complex closure on the lateral aspect was 11 cm. The length of the layered closure on the medial aspect was 3.5 cm. This was followed by Kerlix gauze and a compression garfield wrap along with a surgical bra. Patient tolerated the procedure well and was sent to PACU in satisfactory condition. Patient will be sent home on antibiotics and pain medication. She will keep her head elevated during the initial postoperative period. Patient will followup in a week for a wound check and for discussion of the pathology report and for discussion of the microbiology report. A positive culture will necessitate antibiotic therapy. The sutures will be removed in 7-10 days on the medial aspect. The V lock suture on the lateral aspect will dissolve. Grafts/Implants Used: Eleazar. Complications None. Admit VTE Documentation VTE Present on Admission: No VTE Mechan Device Prophylaxis: SCD's VTE Pharm Prophylaxis ordered?: No Addendum Addendum: Surgery Charges CPT - 34055 ICD-10 - S21.002S, N63.20, N64.4, Z98.890 17513 S21.002S, N63.20, N64.4, Z98.890 68034 N63.20, N64.4, Z98.890 43081 N63.20, N64.4, Z98.890
--- NOTE | 2021-10-22 11:08 | PCM.DC ---
Discharge Instructions Diet Discharge Diet: No restrictions Activity Discharge Activity: May Not Shower May resume sexual activity in: 1-2 weeks Lifting Restrictions: 20 lbs lifting restriction Dressing / Incision Call your doctor if your incision/area has: Continuous Slow Oozing, Sudden Increased Bleeding, Increased Pain/ Swelling, Increased Redness, Foul Smelling Discharge and Swelling at the incision site Call your doctor if you observe: Fever of 101 or Higher, Coldness, Increased Pain, Inability to urinate, Inability to have a bowel movement, Shortness of breath, Chest pain, Calf discomfort and Uncontrolled pain Change Dressing in: 2 days Cleanse incision/area with: Soap & Water Additional Dressing/Incision Instructions:: May change dressing in 2 days. Follow Up Care Please Follow Up With: Dr. Gerard/Carly When: Next week. Call for appointment [phone] Test Results: Test results from this visit will be discussed in further detail at your follow-up appointment, if applicable. Discharge Plan Admission Attending Provider: José Gerard Discharge Orders/Prescriptions Prescriptions: New doxycycline monohydrate 100 mg capsule 100 mg PO DAILY 10 Days Qty: 10 RF: 0 No Action montelukast 10 mg tablet 10 mg PO DAILY RF: 0 metformin 500 mg tablet 500 mg PO DAILY RF: 0 bupropion HCl 150 mg tablet extended release 24 hr 150 mg PO QODAY RF: 0 fluoxetine 10 mg tablet 10 mg PO DAILY RF: 0 triamterene-hydrochlorothiazid 37.5-25 mg tablet 1 tab PO QHS RF: 0 acetaminophen 500 mg Tablet 500 mg PO Q6H PRN (Reason: Back Pain) RF: 0 Hold Instructions: Resume on 03/05/21. Hold until not taking Percocet. No more than 3,000 mg of acetaminophen in a 24 hour period. Ag1 12 oz PO/SL DAILY RF: 0 multivitamin Capsule 1 cap PO DAILY RF: 0 apple cider vinegar 500 mg Tablet 500 mg PO DAILY RF: 0 Referrals / Follow Up: ASMITA SINGH [Other] Disposition Disposition (needs filled in before D/C Order can be placed): Home, Self Care
[2021-10-22] MEDS: oxyCODONE 5 MG Tablet 10 MG PO (12:16)
== END 2021-10-22 23:59 | disposition home or self-care (01) ==
LOC: SDC 07:20 → AC 07:22
PROVIDERS: Anesthesiology; Referring Provider Surgery; Visit Provider Surgery
PROC: (CPT 15002; principal; 2021-10-22 08:15)
DX: N63.20 Unspecified lump in the left breast, unspecified quadrant (principal); N64.4 Mastodynia; S21.002S Unspecified open wound of left breast, sequela; L90.5 Scar conditions and fibrosis of skin; Z98.890 Other specified postprocedural states; X58.XXXS Exposure to other specified factors, sequela; M19.90 Unspecified osteoarthritis, unspecified site; I10 Essential (primary) hypertension; Z79.899 Other long term (current) drug therapy; K76.0 Fatty (change of) liver, not elsewhere classified; G89.29 Other chronic pain; T81.89XS Other complications of procedures, not elsewhere classified, sequela; L30.4 Erythema intertrigo; F32.81 Premenstrual dysphoric disorder
CPT/HCPCS: 15002; 13160; 11401; 12032; 81025; 87015; 87070; 87075; 87102; 87116; 87176; 87205; 87206; 88304; J7120; J2405

== ENCOUNTER → 2021-12-19 | Outpatient (CLI) | payer OTHER, SELFPAY ==
--- NOTE | 2021-12-19 | EMB_PTH ---
PATIENT: JHON MIN [facility]: [facility] U#:[id number] AGE/SX: 51/F ROOM: RE12/19/[address]: Dr. Bobbi Pittman MD : 1970 BED: DIS: 12/19/2021 SPEC #: [id number] RECD: 12/19/21 16:18 STATUS: SD NO #: [id number] JE: 12/19/21 00:[address]: Bobbi Pittman DEPT: SURGICAL PATHOLOGY RECD BY: Kailey Olmstead Tissues: Endometrium, NOS Procedures: Surgery Specimen Level IV HEADER OPERATION: Endometrial Biopsy PRE-OP DIAGNOSIS: Abnormal uterine bleeding TISSUE SUBMITTED: Endometrial Biopsy MICROSCOPIC DIAGNOSIS Endometrial Biopsy: Mildly disordered proliferative endometrium with focal glandular and stromal breakdown. Fragments of benign endocervical mucosa with acute and chronic inflammation. SJ:ronny 12/23/2021 MICROSCOPIC DESCRIPTION Slides are reviewed. GROSS DESCRIPTION Received is one container labeled with the patient's name and not further designated. The specimen consists of multiple fragments of hemorrhagic soft tissue mixed with mucoid tissue that in aggregate measure 2.5 x 2 x 0.2 cm. The specimen is totally submitted in one cassette. / SJ:ronny 12/22/2021 TC:5 CPT: 45223
== END | disposition home or self-care (01) ==
LOC: LABSPEC 16:38
PROVIDERS: Referring Provider Obstetrics & Gynecology; Visit Provider Obstetrics & Gynecology
DX: N93.9 Abnormal uterine and vaginal bleeding, unspecified (principal)
CPT/HCPCS: 88305

== ENCOUNTER 2022-02-24 08:09 | Day surgery (SDC) | payer OTHER, SELFPAY ==
--- NOTE | 2022-02-19 11:10 | EKG12_ITS ---
Test Reason : PREOP Blood Pressure : / mmHG Vent. Rate : 084 BPM Atrial Rate : 084 BPM P-R Int : 112 ms QRS Dur : 094 ms QT Int : 372 ms P-R-T Axes : -19 -06 011 degrees QTc Int : 439 ms Normal sinus rhythm Normal ECG Confirmed by DAMON MERINO, MAHNAZ ([id number]), communications editor GIGI OVALLE ([id number]) on 02/24/2022 9:37:56 AM Referred By: SHADY Confirmed By:ISRA JOSE MD
[2022-02-19 11:56] LABS: Hematocrit 41.6 % (37-47); Hemoglobin 14.2 g/dL (12.0-15.0); Mean Corp Hgb Conc 34.1 g/dL (32-36); Mean Corpuscular Hgb 29.9 pg (27.0-32.0); Mean Corpuscular Volume 87.6 fL (81-99); Mean Platelet Vol. 9.5 fl (6.2-12.0); Platelet Count 344 K/mm3 (150-450); RBC Distribution Width SD 39.2 fl (35.1-43.9); Red Blood Count 4.75 M/mm3 (4.2-5.4); White Blood Count 6.1 K/mm3 (4.4-11.0)
--- NOTE | 2022-02-23 08:05 | PCM.HP.BLA ---
History and Physical Intake Vital Signs ? 02/16/2211:02 02/16/2211:03 Height 5 ft 6 in 5 ft 6 in Weight: 250 lb ? BMI 40.3 ? BP 126/90 H ? 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 Is patient in pain?: No Allergies meloxicam Allergy (Severe, Verified 02/17/22 11:00) Turns skin bright red and gets really hothouse dust Allergy (Intermediate, Verified 02/17/22 11:00) itching and congestionmold Allergy (Verified 02/17/22 11:00) congestion and itching Medications fluoxetine 10 mg tablet 20 mg PO DAILY anxiety 10/09/20 [History Confirmed 02/17/22] metformin 500 mg tablet 500 mg PO DAILY fatty liver 10/09/20 [History Confirmed 02/17/22] montelukast 10 mg tablet (Singulair) 10 mg PO DAILY allergies 10/09/20 [History Confirmed 02/17/22] triamterene 37.5 mg-hydrochlorothiazide 25 mg tablet (Maxzide-25mg) 1 tab PO QHS blood pressure 10/09/20 [History Confirmed 02/17/22] multivitamin 1 cap PO DAILY 10/10/21 [History Confirmed 02/17/22] loratadine 10 mg chewable tablet (Claritin) 10 mg PO DAILY 02/16/22 [History Confirmed 02/17/22] Is last menstrual period known: No Post menopausal: No Patient : No PFSH Medical History?(Updated 02/23/22 @ 06:[address] Bobbi Pittman MD) Alcohol use Allergies Anxiety Arthritis Back problem Breast pain, left Chronic neck pain Chronic pain Chronic thoracic back pain Easy bruising Excessive bleeding Fatty liver Gastric reflux High blood pressure History of renal disease Hx of transfusion of whole blood Intertrigo Mass of left breast Non-smoker PMDD (premenstrual dysphoric disorder) Restless legs Shoulder pain Unspecified open wound of left breast, sequela Wears glasses Surgical History?(Updated 02/23/22 @ 06:[address] Bobbi Pittman MD) History of bilateral breast reduction surgery History of eye surgery History of kidney surgery History of tonsillectomy Hx of breast reduction, elective Family History? Mother Arthritis Diabetes Skin cancerFather Cancer Hypertension Lung cancer Skin cancerGrandfather CancerDaughter CancerBrother Diabetes Social History?(Updated 02/16/22 @ 11:03 by Jess Arenas) Smoking Status:? Never smoker alcohol intake:? current details:? socially substance use type:? does not use additional social history:? 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 HPI [facility] BS Details: JHON MIN is a 51 year old who presents for heavy irregular bleeding 12 cm uterus and with a 5 cm fibroid. planning an [facility] bs for this. Female Reproductive History Cycle Length: 21-35 Bleeding Duration: 5 Questions: metorrhagia: No, sexually active: Yes, dyspareunia: No and PCB: No Menopausal Symptoms: No hot flashes, Yes night sweats, No weight change, No mood changes, No difficulty concentrating, No sleep problems and No change in libido Pregancy History ? ? ? 3 ? Elective abortions ? Hx Para ? ? ? 2 ? Spontaneous abortions ? Hx # Term Pregnancies ? Ectopic pregnancies ? Hx # Pregnancies ? Multiple births ? # of living children ? ? ? 2 ROS Const Constitutional: Reports night sweats ENT ENT: Reports system reviewed and no additional complaints, except as documented Cardio Card: Denies chest pain Resp Resp: Denies cough or dyspnea GI GI: Reports as per HPI; Denies constipation, nausea or vomiting : Denies hot flashes or nipple discharge Musc Musc: Denies arthralgias, back pain or muscle weakness Skin Skin/Breast: Denies alopecia, change in hair, dry skin, breast mass, breast pain, breast skin changes or nipple discharge Neuro Neuro: Reports system reviewed and no additional complaints, except as documented Psych Psych: Denies change in libido or difficulty concentrating Endo Endo: Denies cold intolerance, excessive sweating, heat intolerance or polydipsia Hunter/Lymph Hematologic/Lymphatic: Denies easy bleeding, Denies easy bruising and Denies lymphadenopathy Exam Const General: cooperative, healthy appearing, comfortable, no acute distress and well developed Orientation: alert HENMT Head: normal to inspection and normocephalic Ears: hearing grossly normal bilaterally and external ears normal Nose: external nose normal and nares abnormal Face and sinus: normal facial exam Neck Neck: normal visual inspection and no lymphadenopathy Thyroid: thyroid normal Chest Chest palpation & inspection: normal inspection of the chest Resp Effort & Inspection: normal respiratory effort Auscultation: clear to auscultation bilaterally Cardio Rate: regular rate Rhythm: regular rhythm Heart Sounds: S1 normal and S2 normal GI Inspection: normal to inspection and non-distended Palpation: soft and no hepatosplenomegaly General: bladder normal to palpation External Female Exam: normal external appearance and normal appearance of the urethra Urethra: normal appearance of the urethra, normal palpation and no discharge Speculum Exam - Vagina: normal appearance of the vagina and normal vaginal discharge Speculum Exam - Cervix: normal appearance of the cervix and nontender Bimanual Exam- Vagina & Uterus: normal bimanual exam, uterine size normal, bladder normal to palpation, uterine shape normal, No tender, uterine mobility normal, consistency normal, normal palpation and non-tender Bimanual Exam- Adnexa, other: normal adnexae, adnexae mobile, no masses and normal Pelvic Support: normal Musc Other: gross motor intact no deficits, full bilateral strength Skin General: no rashes or lesions noted Neuro General: patient alert, patient awake, moves all extremities and no focal motor deficits Motor: muscle tone normal throughout Extrem General: normal to inspection and no pedal edema Psych Appearance: grossly normal Mental Status: mental status grossly normal Affect: normal affect Speech and Movement: speech and movement normal Coding Level of Care Code No Charge Diagnoses Uterine fibroid? D25.9 Assessment and Plan Assessment and Plan (1) Uterine fibroid: ?Status:?Acute ?Comment: Mildly enlarged uterus with 5 cm fibroid per previous notes obtain ultrasound records plan LAVHBS Plan After discussing the patient's diagnosis and treatment plan options, patient wishes to proceed with surgical management.? I have discussed with the patient the risks, benefits, and alternatives of the procedure which include but are not limited to risks of anesthesia, bleeding, infection, possible damage to bowel, bladder, or surrounding vasculature which could lead to additional surgery to evaluate any complications.? Patient agrees to procedure and wishes to proceed.? ACOG/uptodate references given for additional information regarding procedure.? UPDATE- I have seen the patient and performed any clinically relevant updates to the history and physical exam. Bobbi Pittman MD
[2022-02-24] VITALS (12 sets, daily range): BP systolic 141–160; BP diastolic 87–108; PULSE 72–95; RESP 16; TEMP 36.5–36.9; O2SAT 91–100; BMI 40.5
[2022-02-24 09:23] LABS: Internal QC Validated? YES +Cl - CLEAR BKGD; Pregnancy, Urine Negative Negative
[2022-02-24 09:37] LABS: AST(SGOT) 19 U/L (15-37); Alanine Aminotransfer ALT/SGPT 31 U/L (13-56); Albumin, Serum 3.6 g/dL (3.2-5.0); Alkaline Phosphatase 61 U/L (45-117); Anion Gap 5 (5-15); BUN 15 mg/dL (7-18); BUN/Creat Ratio 16.2 RATIO (10-20); Bilirubin, Direct 0.08 mg/dL (0.00-0.30); Calcium,Total 9.6 mg/dL (8.5-10.1); Chloride 104 mmol/L (98-107); Creatinine, Serum 0.92 mg/dL (0.55-1.02); EST Glomerular Filtration Rate 67 mL/min (>60); Est Glom Filt Rate - Afr Amer 81 mL/min (>60); Globulin 3.6 g/dL (2.2-4.2); Glucose 148 mg/dL (74-106); Magnesium 2.1 mg/dL (1.6-2.6); Potassium 3.5 mmol/L (3.5-5.1); Protein, Total 7.2 g/dL (6.4-8.2); Sodium Level 137 mmol/L (136-145)
[2022-02-24] MEDS: dexAMETHasone 10 MG/ML Vial 8 MG IV (09:38)
[2022-02-24 09:39] LABS: Prothrombin Time (Protime)PT. 13.2 SECONDS (11.7-14.9)
[2022-02-24 09:40] LABS: Partial Thromboplast Time 34.3 Seconds (24.1-36.2)
[2022-02-24] MEDS: Lactated Ringers 1,000 ML 40 ML IV ×3 (09:44→14:12)
[2022-02-24] MEDS: Acetaminophen 500 MG Tablet 1000 MG PO (09:44)
[2022-02-24] MEDS: Phenazopyridine 95 MG Tablet 190 MG PO (09:44)
[2022-02-24] MEDS: Gabapentin 600 MG Tablet PO (09:44)
[2022-02-24] MEDS: Scopolamine 1mg/72hr Patch 1 PATCH TD (09:45)
[2022-02-24] MEDS: Enoxaparin 40 MG/0.4 ML Syringe SC (09:45)
--- NOTE | 2022-02-24 10:15 | HYST_PTH ---
PATIENT: JHON MIN LOC: [facility] [place] U#:[id number] AGE/SX: 51/F ROOM: RE02/24/[address]: Dr. Bobbi Pittman MD : 1970 BED: DIS: 02/24/2022 SPEC #: [id number] RECD: 02/24/22 14:40 STATUS: SD CHRISTOPHERMaya #: [id number] JE: 02/24/22 10:[address]: Bobbi Pittman DEPT: SURGICAL PATHOLOGY RECD BY: Kailey Olmstead Tissues: Uterus, NOS Procedures: Surgery Specimen Level V HEADER OPERATION: ERAS, hysterectomy, LAVH, salpingectomy PRE-OP DIAGNOSIS: Abnormal uterine bleed, fibroid TISSUE SUBMITTED: Cervix, uterus, bilateral fallopian tubes MICROSCOPIC DIAGNOSIS Uterus, hysterectomy: Cervix ? nabothian cyst, squamous metaplasia and mild chronic inflammation. Endometrium ? proliferative endometrium. Myometrium ? leiomyomas and adenomyosis. Right fallopian tube ? benign paratubal cyst. Left fallopian tube - No pathologic change. AM:ronny 02/26/2022 MICROSCOPIC DESCRIPTION Slides are reviewed. GROSS DESCRIPTION Received in fixative is one container labeled with the patient's name and designated uterus, cervix, bilateral fallopian tubes. The specimen consists of a hysterectomy specimen consisting of uterus with posterior portion of cervix and attached bilateral fallopian tubes. The anterior cervix is received in two detached pieces. The uterus with detached pieces of cervix weighs in aggregate 325 gm. The uterus with cervix measures 11.5 x 12 x 6 cm. Detached piece of cervix measures 6.5 x 3 x 1 cm. Also present is one detached piece of uterus which consists of lower uterine segment measuring 3 x 2 x 1.5 cm. The endocervical canal measures 3.5 cm in length. The ectocervical mucosa is unremarkable. The external os cannot be evaluated due to detached portion of cervix. The endocervical canal measures 3.5 cm in length. The endocervical mucosa is ramos, glistening and unremarkable. The triangular endometrial cavity is displaced to one side and measures 5 cm in length and 3 cm in width. The endometrium is ramos, glistening without any mass lesion and measures up to 0.2 cm in thickness. Sections of the uterine wall reveal multiple intramural, subserosal and nodular masses. The largest mass measures 6 cm in diameter. Sections of these masses reveal ramos whorled cut surfaces without areas of hemorrhage, necrosis or cystic degeneration. The uninvolved uterine wall measures up to 3 cm in width. The right fallopian tube measures 6.5 cm in length and 0.5 cm in diameter. The fimbrial end is identified. Sections reveal unremarkable cut surfaces. A paratubal cyst is noted measuring 1.5 cm in greatest dimension. The left fallopian tube is similar appearance to right and measures 7 cm in length and up to 1?cm in diameter. Lube Worker sections are submitted in 11 cassettes as follows: 1 - anterior cervix, 2??posterior cervix, 3 & 4 - anterior uterine wall, 5 & 6 - posterior uterine wall, 7 & 8 - largest nodular mass, 9 - small nodular mass, 10 - right fallopian tube and paratubal cyst, 11 - left fallopian tube. / MARIANNE:ronny 02/25/2022 TC:1 CPT: 78867
[2022-02-24 10:45] LABS: Bedside Glucose 140 mg/dL (74-106)
[2022-02-24] MEDS: Cefazolin 2 GM in 0.9% Normal Saline 100 ML IV (10:49)
[2022-02-24] MEDS: Vasopressin 20 UNITS/ML Vial (12:10)
[2022-02-24] MEDS: Bupivacaine Mpf 0.5% 30 ML VIAL (13:21)
--- NOTE | 2022-02-24 13:30 | OP.PCM_ITS ---
Problems Associated Problem List Diagnoses (1) Uterine fibroid: Report of Operation Date of Procedure: 02/24/22 Pre-Operative Diagnosis: AUB Post-Operative Diagnosis: same Surgery/Procedure Performed:: LAVHBS Description of Surgical Findings:: enlarged uterus with 5 cm fibroid Surgeon: Bobbi Pittman senior medical billing specialist: Vaishnavi Castro Type of Anesthesia: General Special Medications: floseal Specimen's removed: uterus, tubes Drains: short Estimated Blood Loss (mL): 700 Fluids Replaced: crystalloid Description of Procedure: Patient received preoperative antibiotics and SCDs were on preoperatively. Patient was taken back to the operating room and placed in the dorsal lithotomy position. General anesthesia was induced and patient was prepped and draped in normal sterile fashion. Uterine manipulator was placed inside the uterus and Short catheter placed in the bladder. The umbilicus was grasped with towel clamps and an intraumbilical incision was made after injecting with quarter percent Marcaine and a Veress needle entered into the abdomen confirmed to be intra-abdominal with a low opening pressure. Abdomen was insufflated with CO2 gas and the Veress needle removed and the 5 mm trocar was placed under direct visualization without complication. Right and left lower quadrants were transilluminated and injected with quarter percent Marcaine and 5 mm ports placed under direct visualization. Pelvis was well visualized see operative findings for additional information. Bilateral fallopian tubes were identified and transected with the LigaSure device across the mesosalpinx to the level of the utero-ovarian ligament which was also transected with the LigaSure device. The broad ligament was opened up by transecting the round ligament bilaterally and skeletonizing the uterine vessels bilaterally and creating a bladder flap using the LigaSure device. The uterine arteries were transected bilaterally with good visualization of the bladder and the ureters were seen to be inferior lateral to the operative area. this was more difficult technically due to the enlarged uterus with large fibroid present but still executed. Attention was then paid to the vaginal portion of the procedure and the cervix was grasped with Zane clamps and circumferentially injected with dilute vasopressin. A circumferential incision was made and the vaginal mucosa was mobilized off posteriorly and the cul-de-sac entered into sharply and a longneck speculum placed. The anterior cul-de-sac was then identified and entered into sharply. The uterosacral ligaments were clamped cut and suture ligated with 0 Monocryl bilaterally followed by the cardinal ligaments which were clamped cut and suture ligated bilaterally with 0 Monocryl. limited vaginal access was present with a long vagina and the procedure was technically difficult due to the patient's BMI and the large uterus. The uterus serially descended and was removed without difficulty. Pelvic sidewall pedicles were checked and noted to have excellent hemostasis after two additional sutures were placed in the left vaginal side wall. The vaginal mucosa was reapproximated incorporating the posterior peritoneum. This was reapproximated using 0 Vicryl [id number] sutures. Excellent hemostasis was noted. The pelvis and cul-de-sac were well visualized and the left side wall was cauterized and then no significant active bleeding noted but some raw areas were seen on the peritoneum and therefore floseal was applied. Pressure was taken down and the areas visualized and noted of excellent hemostasis. All ports were removed under direct visualization without complication and the abdomen was desufflated of air. The instruments were removed from the abdomen and the vaginal sweep was negative. Port sites on the abdomen were closed with 4-0 Monocryl interrupted sutures and Steri's and windows were applied. She was awoken and taken recovery in stable condition. Grafts/Implants Used: none Complications none Admit VTE Documentation VTE Present on Admission: No VTE Mechan Device Prophylaxis: SCD's VTE Pharm Prophylaxis ordered?: Yes Procedures Urinary/Genital [id number]: 71739 LAVH+BS/O >250gr Uterus
--- NOTE | 2022-02-24 13:34 | DCINST_ITS ---
Discharge Instructions Diet Discharge Diet: No restrictions Activity May resume sexual activity in: 6 weeks Weight Bearing Status: Full weight bearing Dressing / Incision Call your doctor if your incision/area has: Continuous Slow Oozing, Sudden Increased Bleeding, Increased Pain/ Swelling, Increased Redness and Foul Smelling Discharge Call your doctor if you observe: Fever of 101 or Higher, Using more than 1 pad per hour, Shortness of breath, Chest pain and Uncontrolled pain Suture Line Care: Avoid Pulling/Pushing and Avoid Pinching/Bending Remove Dressing in: 1 week (if present) Cleanse incision/area with: Soap & Water and Keep Dressing Clean & Dry Follow Up Care Please Follow Up With: Bobbi Pittman MD When: Call to make an appointment with your doctor for a postop visit in 2 and 6 weeks. Test Results: Test results from this visit will be discussed in further detail at your follow- up appointment, if applicable. Discharge Plan Admission Attending Provider: Bobbi Pittman Primary Care Provider: ASMITA SINGH Discharge Orders/Prescriptions Prescriptions: New oxycodone-acetaminophen [Percocet] 5-325 mg tablet 1 tab PO Q6H PRN (Reason: pain) 7 Days Qty: 20 0RF naproxen [naproxen] 500 MG tablet 500 mg PO BID PRN PRN (Reason: Pain) Qty: 30 1RF No Action montelukast [Singulair] 10 mg tablet 10 mg PO DAILY metformin 500 mg tablet 500 mg PO DAILY fluoxetine 10 mg tablet 20 mg PO DAILY triamterene-hydrochlorothiazid [Maxzide-25mg] 37.5-25 mg tablet 1 tab PO QHS Claritin 10 mg tablet,chewable 10 mg PO DAILY multivitamin Capsule 1 cap PO DAILY Other Ambulatory Orders: 12 Lead EKG (Routine) Timeframe: [id number] Location: None Selected Ordered By: Dr. Antonino Lang Referrals / Follow Up: ASMITA SINGH [Other] Disposition Disposition (needs filled in before D/C Order can be placed): Home, Self Care
[2022-02-24 13:56] LABS: Bedside Glucose 189 mg/dL (74-106)
[2022-02-24] MEDS: Ketorolac 30 MG/ML Syringe IV (14:25)
[2022-02-24 16:14] LABS: Hematocrit 40.9 % (37-47); Hemoglobin 13.7 g/dL (12.0-15.0); Mean Corp Hgb Conc 33.5 g/dL (32-36); Mean Corpuscular Hgb 29.8 pg (27.0-32.0); Mean Corpuscular Volume 88.9 fL (81-99); Mean Platelet Vol. 9.3 fl (6.2-12.0); Platelet Count 288 K/mm3 (150-450); RBC Distribution Width SD 39.1 fl (35.1-43.9); White Blood Count 11.3 K/mm3 (4.4-11.0)
== END 2022-02-24 17:57 | disposition home or self-care (01) ==
LOC: SDC 08:11 → AC 08:14
PROVIDERS: Anesthesiology; Visit Provider Obstetrics & Gynecology
PROC: 0UT9FZZ Resection of Uterus, Via Natural or Artificial Opening With Percutaneous Endoscopic Assistance (ICD-10-PCS; CPT 58554; principal; 2022-02-24 09:50)
DX: N88.8 Other specified noninflammatory disorders of cervix uteri (principal); N83.8 Other noninflammatory disorders of ovary, fallopian tube and broad ligament; N87.9 Dysplasia of cervix uteri, unspecified; N80.0 Endometriosis of uterus; D25.9 Leiomyoma of uterus, unspecified; F41.9 Anxiety disorder, unspecified; M19.90 Unspecified osteoarthritis, unspecified site; K76.0 Fatty (change of) liver, not elsewhere classified; G89.29 Other chronic pain; Z79.899 Other long term (current) drug therapy; Z79.84 Long term (current) use of oral hypoglycemic drugs
CPT/HCPCS: 58554; 36415; 80048; 80076; 81025; 82962; 83735; 85027; 85610; 85730; 86850; 86900; 86901; 88307; 93005; J7120; J2405; J3475